=== PATIENT | male | born 1950 | race Hispanic/Latino ===

== ENCOUNTER 2023-11-10 16:00 | Emergency (ER) | payer MEDICARE ==
[~2023-11-10] VITALS: Ht 167.6 cm; Wt 78.5 kg
[2023-11-10 16:04] VITALS: PULSE 60; RESP 18; TEMP 98
[2023-11-10] MEDS: ONDANSETRON HCL INJ 2MG/ML 2ML 2 MG/ML VIAL IV ONE (17:12)
[2023-11-10] MEDS: FAMOTIDINE 20 MG/2 ML VIAL IV ONE (17:12)
[2023-11-10] MEDS: LACTATED RINGER'S 1,000 ML INJ ONE (17:13)
[2023-11-10] MEDS ORDERED: ONDANSETRON ODT4 MG PO (17:29)
[2023-11-10] MEDS ORDERED: OMEPRAZOLE40 MG PO (17:29)
[2023-11-10] MEDS ORDERED: MAALOX MAXIMUM355 ML PO (17:29)
[2023-11-10 18:27] VITALS: BP 121/74; PULSE 84; RESP 18; TEMP 98.3; O2SAT 98
== END 2023-11-10 18:10 | disposition home or self-care (01) ==
LOC: FSED 16:30
DX: R11.2 Nausea with vomiting, unspecified (principal); K30 Functional dyspepsia; E11.65 Type 2 diabetes mellitus with hyperglycemia; I10 Essential (primary) hypertension; Z11.52 Encounter for screening for COVID-19
CPT/HCPCS: 0223U; 80048; 80307; 81003; 82553; 84484; 85025; 87400; 93005; 94760; 99283; J2405; J7121